=== PATIENT | female | born 1985 | race Caucasian/White ===

== ENCOUNTER → 2017-06-28 | Emergency (ER) | payer OTHER ==
[~2017-06-28] VITALS: Ht 162.6 cm; Wt 108.9 kg
[~2017-06-28] MED LIST: DICLOFENAC SODI50 MG PO; SYNTHROID100 MCG; XOPENEX0.63 MG/3 IH
== END | disposition home or self-care (01) ==
LOC: ER 22:51
DX: R00.2 Palpitations (principal)

== ENCOUNTER 2017-10-04 15:18 | Emergency (ER) | payer OTHER ==
[~2017-10-04] VITALS: Ht 162.6 cm; Wt 108.9 kg
== END 2017-10-04 20:37 | disposition home or self-care (01) ==
LOC: ER 15:18
DX: J32.8 Other chronic sinusitis (principal); H65.191 Other acute nonsuppurative otitis media, right ear

== ENCOUNTER 2017-10-14 23:13 | Emergency (ER) | payer OTHER ==
[~2017-10-14] VITALS: Ht 162.6 cm; Wt 113.4 kg
== END 2017-10-15 10:20 | disposition home or self-care (01) ==
LOC: ER 23:13
DX: J45.998 Other asthma (principal)

== ENCOUNTER → 2018-01-10 | Emergency (ER) | payer OTHER ==
[~2018-01-10] VITALS: Ht 162.6 cm; Wt 113.4 kg
== END | disposition home or self-care (01) ==
LOC: ER 19:40
DX: M94.0 Chondrocostal junction syndrome [Tietze] (principal); N39.0 Urinary tract infection, site not specified

== ENCOUNTER 2018-05-29 19:18 | Emergency (ER) | payer OTHER ==
[~2018-05-29] VITALS: Ht 162.6 cm; Wt 116.1 kg
== END 2018-05-29 23:47 | disposition home or self-care (01) ==
LOC: ER 19:18
DX: J32.8 Other chronic sinusitis (principal)

== ENCOUNTER 2018-06-14 18:54 | Emergency (ER) | payer OTHER ==
[~2018-06-14] VITALS: Ht 162.6 cm; Wt 113.4 kg
== END 2018-06-14 22:39 | disposition home or self-care (01) ==
LOC: ER 18:54
DX: B34.9 Viral infection, unspecified (principal)

== ENCOUNTER 2019-06-05 01:38 | Emergency (ER) | payer OTHER ==
[~2019-06-05] VITALS: Ht 162.6 cm; Wt 107.5 kg
[2019-06-05] MEDS ORDERED: SINGULAIR10 MG (01:52)
[2019-06-05] MEDS ORDERED: SYMBICORT 16010.2 GM IH (06:47)
[2019-06-05] MEDS ORDERED: XOPENEX0.63 MG/3 IH (06:47)
[2019-06-05] MEDS ORDERED: ZYNCOF 20-400120 ML PO (06:47)
[2019-06-05] MEDS ORDERED: KETO10TA2 PO (06:47)
== END 2019-06-05 06:56 ==
LOC: ER 01:38
DX: J40 Bronchitis, not specified as acute or chronic (principal)

== ENCOUNTER 2020-03-13 00:35 | Emergency (ER) | payer OTHER ==
[~2020-03-13] VITALS: Ht 162.6 cm; Wt 104.3 kg
[~2020-03-13 00:35] MED LIST changes: +KETO10TA2 PO; +SINGULAIR10 MG; +SYMBICORT 16010.2 GM IH; +ZYNCOF 20-400120 ML PO
[2020-03-13] MEDS ORDERED: INTESTINEX680 M1 PO (06:03)
[2020-03-13] MEDS ORDERED: PHENERGAN25 MG PO (06:03)
[2020-03-13] MEDS ORDERED: PEPCID40 MG PO (06:03)
== END 2020-03-13 06:18 | disposition home or self-care (01) ==
LOC: ER 00:35
DX: K52.89 Other specified noninfective gastroenteritis and colitis (principal); Z03.818 Encounter for observation for suspected exposure to other biological agents ruled out

== ENCOUNTER 2020-03-15 23:23 | Emergency (ER) | payer OTHER ==
[~2020-03-15] VITALS: Ht 162.6 cm; Wt 106.6 kg
[~2020-03-15 23:23] MED LIST changes: +INTESTINEX680 M1 PO; +PEPCID40 MG PO; +PHENERGAN25 MG PO
[2020-03-16] MEDS ORDERED: TUSSIN DM SYRU118 ML PO (15:19)
[2020-03-16] MEDS ORDERED: MEDROLPACK PO (15:19)
[2020-03-16] MEDS ORDERED: ZITHROMAX500 MG PO (15:19)
== END 2020-03-16 16:08 | disposition home or self-care (01) ==
LOC: ER 23:23
DX: U07.1 COVID-19 (principal); B96.0 Mycoplasma pneumoniae [M. pneumoniae] as the cause of diseases classified elsewhere; R10.13 Epigastric pain; R11.2 Nausea with vomiting, unspecified

== ENCOUNTER 2020-04-03 04:41 | Emergency (ER) | payer OTHER ==
[~2020-04-03] VITALS: Ht 162.6 cm; Wt 106.6 kg
[~2020-04-03 04:41] MED LIST changes: +MEDROLPACK PO; +TUSSIN DM SYRU118 ML PO; +ZITHROMAX500 MG PO
[2020-04-03] MEDS ORDERED: SYNTHROID100 MCG PO (13:14)
== END 2020-04-03 13:29 | disposition home or self-care (01) ==
LOC: ER 04:41
DX: U07.1 COVID-19 (principal); J12.89 Other viral pneumonia

== ENCOUNTER 2020-07-06 21:52 | Emergency (ER) | payer OTHER ==
[~2020-07-06] VITALS: Ht 162.6 cm; Wt 113.4 kg
[~2020-07-06 21:52] MED LIST changes: +SYNTHROID100 MCG PO
== END 2020-07-07 01:40 | disposition home or self-care (01) ==
LOC: ER 21:52
DX: N93.8 Other specified abnormal uterine and vaginal bleeding (principal)

== ENCOUNTER 2020-07-12 22:45 | Emergency (ER) | payer OTHER ==
[~2020-07-12] VITALS: Ht 165.1 cm; Wt 113.4 kg
== END 2020-07-14 10:20 | disposition home or self-care (01) ==
LOC: ER 22:45
DX: D50.0 Iron deficiency anemia secondary to blood loss (chronic) (principal); N93.8 Other specified abnormal uterine and vaginal bleeding; D25.1 Intramural leiomyoma of uterus; R10.2 Pelvic and perineal pain; R53.1 Weakness; R53.81 Other malaise
CPT/HCPCS: 36430 ×3; 86904 ×3; 86922 ×3; 93005; P9016 ×3

== ENCOUNTER 2020-09-24 04:51 | Inpatient (IN) | payer OTHER ==
[~2020-09-24] VITALS: Ht 162.6 cm; Wt 108.9 kg
[2020-09-24] MEDS ORDERED: PEPCID20 MG (05:22)
[2020-09-24] MEDS ORDERED: IRON 100 PLUS1 EACH (05:23)
[2020-09-27] MEDS ORDERED: LEVOTHYROXINE100 MCG PO (16:56)
[2020-09-27] MEDS ORDERED: Neurin-Sl Tablet Sl SL (16:56)
[2020-09-27] MEDS ORDERED: PYRIDOXINE HCL100 MG PO (16:56)
[2020-09-27] MEDS ORDERED: INTEGRA PLUS C1 EACH PO (16:56)
== END 2020-09-27 17:05 | disposition home or self-care (01) | DRG 761 ==
LOC: ER 04:51 → SEC-K 17:58 → SURG 17:58
PROVIDERS: ADMIT Internal Medicine Geriatric Medicine; ATTEND Internal Medicine Geriatric Medicine
PROC: 30233N1 Transfusion of Nonautologous Red Blood Cells into Peripheral Vein, Percutaneous Approach (ICD-10-PCS; principal; 2020-09-25)
PROC: BW211ZZ Computerized Tomography (CT Scan) of Abdomen and Pelvis using Low Osmolar Contrast (ICD-10-PCS; 2020-09-26)
PROC: BW2410Z Computerized Tomography (CT Scan) of Chest and Abdomen using Low Osmolar Contrast, Unenhanced and Enhanced (ICD-10-PCS; 2020-09-26)
DX: N93.8 Other specified abnormal uterine and vaginal bleeding (principal); D64.9 Anemia, unspecified; D25.9 Leiomyoma of uterus, unspecified; E03.8 Other specified hypothyroidism; E66.9 Obesity, unspecified; Z86.16 Personal history of COVID-19

== ENCOUNTER 2020-10-02 10:15 | Inpatient (IN) | payer OTHER ==
[~2020-10-02] VITALS: Ht 162.6 cm; Wt 108.4 kg
[~2020-10-02 10:15] MED LIST changes: +INTEGRA PLUS C1 EACH PO; +IRON 100 PLUS1 EACH; +LEVOTHYROXINE100 MCG PO; +Neurin-Sl Tablet Sl SL; +PEPCID20 MG; +PYRIDOXINE HCL100 MG PO
== END 2020-10-11 14:02 | disposition home or self-care (01) | DRG 741 ==
LOC: ADM 10:15 → EDSTATUS 10:15 → O/R 10-08 06:30 → SURH 10-08 10:15 → SURG 10-08 20:46
PROVIDERS: ADMIT Obstetrics & Gynecology Gynecologic Oncology; ATTEND Obstetrics & Gynecology Gynecologic Oncology
PROC: 0UT20ZZ Resection of Bilateral Ovaries, Open Approach (ICD-10-PCS; 2020-10-08)
PROC: 0UT70ZZ Resection of Bilateral Fallopian Tubes, Open Approach (ICD-10-PCS; 2020-10-08)
PROC: 07BC0ZZ Excision of Pelvis Lymphatic, Open Approach (ICD-10-PCS; 2020-10-08)
PROC: 0UT90ZZ Resection of Uterus, Open Approach (ICD-10-PCS; principal; 2020-10-08 18:45)
DX: C54.1 Malignant neoplasm of endometrium (principal); D25.1 Intramural leiomyoma of uterus; D64.9 Anemia, unspecified; N80.0 Endometriosis of uterus; N83.12 Corpus luteum cyst of left ovary; N83.01 Follicular cyst of right ovary; N93.8 Other specified abnormal uterine and vaginal bleeding; E03.8 Other specified hypothyroidism; Z86.16 Personal history of COVID-19

== ENCOUNTER 2021-02-03 18:48 | Emergency (ER) | payer OTHER ==
[~2021-02-03] VITALS: Ht 162.6 cm; Wt 103.0 kg
[2021-02-03] MEDS ORDERED: MUCINEX DM ER1 EAC1 PO (23:30)
[2021-02-03] MEDS ORDERED: MOXIFLOXACIN H400 MG PO (23:30)
[2021-02-03] MEDS ORDERED: MEDROLPACK PO (23:30)
[2021-02-03] MEDS ORDERED: ZYRTEC10 MG PO (23:30)
[2021-02-03] MEDS ORDERED: LEVALBUTER1.25 MG/3 IH (23:30)
== END 2021-02-03 23:48 | disposition home or self-care (01) ==
LOC: ER 18:48
DX: B34.9 Viral infection, unspecified (principal); R07.89 Other chest pain; J06.9 Acute upper respiratory infection, unspecified; Z03.818 Encounter for observation for suspected exposure to other biological agents ruled out; E03.9 Hypothyroidism, unspecified; J45.998 Other asthma

== ENCOUNTER 2021-03-08 20:32 | Emergency (ER) | payer OTHER ==
[~2021-03-08] VITALS: Ht 162.6 cm; Wt 101.2 kg
[~2021-03-08 20:32] MED LIST changes: +LEVALBUTER1.25 MG/3 IH; +MOXIFLOXACIN H400 MG PO; +MUCINEX DM ER1 EAC1 PO; +ZYRTEC10 MG PO
[2021-03-08] MEDS ORDERED: PEPCID AC20 MG (21:14)
[2021-03-08] MEDS ORDERED: SINGULAIR10 MG (21:15)
[2021-03-08] MEDS ORDERED: LEVSIN/SL0.125 MG SL (23:10)
[2021-03-08] MEDS ORDERED: CARAFATE1 GM PO (23:10)
[2021-03-08] MEDS ORDERED: PEPCID AC20 MG PO (23:10)
== END 2021-03-08 23:27 | disposition home or self-care (01) ==
LOC: ER 20:32
DX: R10.13 Epigastric pain (principal)

== ENCOUNTER 2021-03-16 16:40 | Emergency (ER) | payer OTHER ==
[~2021-03-16] VITALS: Ht 162.6 cm; Wt 102.1 kg
[~2021-03-16 16:40] MED LIST changes: +CARAFATE1 GM PO; +LEVSIN/SL0.125 MG SL; +PEPCID AC20 MG; +PEPCID AC20 MG PO
== END 2021-03-17 00:44 | disposition home or self-care (01) ==
LOC: ER 16:40
DX: J40 Bronchitis, not specified as acute or chronic (principal); R11.10 Vomiting, unspecified; Z03.818 Encounter for observation for suspected exposure to other biological agents ruled out